=== PATIENT | female | born 1940 | race Caucasian/White ===

== ENCOUNTER 2020-10-26 10:45 | Inpatient (IN) ==
[2020-10-26 11:52] LABS: Red Blood Count 4.94 M/mcL (3.82-4.97)
[2020-10-26 11:54] LABS: Hemoglobin 16.2 g/dL (11.5-15.4); Mean Corpuscular HGB Conc 32.4 g/dL (31.6-35.5); Mean Corpuscular Hemoglobin 32.8 pg (28.0-33.3); Mean Corpuscular Volume 101.2 fL (83.0-100.0); Mean Platelet Volume 10.1 fL (9.4-12.4); Monocytes # 1.6 K/mcL (0.0-1.3); Platelet Count 135 K/mcL (140-400); Red Cell Distribution Width 15.8 % (11.5-14.5); White Blood Count 14.6 K/mcL (4.3-11.1)
[2020-10-26 11:58] LABS: VBG Ionized Calcium 1.06 mmol/L (1.15-1.35)
[2020-10-26 12:25] LABS: Troponin I 0.07 ng/mL (< 0.04)
[2020-10-26 12:30] LABS: Amorphous Sediment,Urine Few per hpf (None-Few); Bilirubin,Urine Negative (Negative); Blood,Urine Small (Negative); Clarity,Urine Turbid (Clear); Color,Urine Yellow (Yellow); Glucose,Urine (UA) Normal (Normal); Hyaline Casts,Urine Moderate per lpf (None Seen); Ketones,Urine Negative (Negative); Leukocyte Esterase,Urine Negative (Negative); Mucus,Urine Few per lpf (None-Few); Nitrite,Urine Negative (Negative); PH,Urine 5.5 pH Units (5.0-8.0); Protein,Urine 30 mg/dL (Neg-Trace); Specific Gravity,Urine 1.023 (1.010-1.025); Squamous Epithelial Cell,Urine Few per hpf (None-Few); WBC,Urine 0-3 per hpf (0-3)
[2020-10-26 12:49] LABS: Neutrophils # 10.5 K/mcL (1.6-8.9); Reactive Lymphocytes Present (Not Present)
[2020-10-26 12:50] LABS: Albumin 3.6 g/dL (3.5-5.7); Albumin/Globulin Ratio 1.1 (1.1-2.2); Anisocytosis 1+ (Not Present); Bilirubin,Total 1.7 mg/dL (0.3-1.0); Calcium 9.4 mg/dL (8.6-10.3); Globulin 3.3 g/dL (2.4-3.5); Magnesium 2.3 mg/dL (1.6-2.6); Phosphorous 3.9 mg/dL (2.7-4.5); Platelet Estimate Slight Decrease (Normal); Thyroid Stimulating Hormone 0.853 mcIU/mL (0.340-5.600); Total Protein 6.9 g/dL (6.4-8.9)
[2020-10-26] MEDS ORDERED: Naloxone 0.4 MG/ML INJ IVP PRN (13:49)
[2020-10-26] MEDS ORDERED: Perflutren Lipid Microsphere 1.3 ML in 0.9 % Sodium Chloride 8.7 ML IVP PRN (13:53)
[2020-10-26] MEDS ORDERED: Furosemide 20 MG/2 ML VIAL IVP ONE (13:59)
[2020-10-26] MEDS ORDERED: Calcium Gluconate 1gm/50mL 1 GM/50 ML BAG IVPB ONE (14:13)
[2020-10-26] MEDS: Acetaminophen 325 MG TABLET PO PRN (17:46)
[2020-10-26] MEDS: Piperacillin/Tazobactam 3.375 GM in 0.9 % Sodium Chloride Mini Bag 100 ML IVPB SCH (17:55)
[2020-10-26] MEDS: dexAMETHasone 4 MG TABLET PO SCH (20:24)
[2020-10-26] MEDS: Apixaban 5 MG TABLET PO SCH (20:24)
[2020-10-26] MEDS: Doxycycline 100 MG in 0.9 % Sodium Chloride Mini Bag 100 ML IVPB SCH (20:25)
[2020-10-26] MEDS ORDERED: Aspirin 325 MG TABLET PO ONE (23:00)
[2020-10-27] MEDS ORDERED: Doxycycline 100 MG VIAL ONE (05:18)
[2020-10-27] MEDS: Doxycycline 100 MG in 0.9 % Sodium Chloride Mini Bag 100 ML IVPB SCH ×2 (05:47→16:48)
[2020-10-27] MEDS: Acetaminophen 325 MG TABLET PO PRN ×2 (05:50→22:32)
[2020-10-27 07:36] LABS: Basophils % 0.1 %; Eosinophils % 0.1 %; Hematocrit 36.3 % (35.3-44.9); Immature Granulocytes % 12.9 % (0-4); Lymphocytes # 1.1 K/mcL (0.6-4.6); Lymphocytes % 7.9 %; Mean Corpuscular HGB Conc 32.5 g/dL (31.6-35.5); Mean Corpuscular Hemoglobin 33.4 pg (28.0-33.3); Mean Corpuscular Volume 102.8 fL (83.0-100.0); Mean Platelet Volume 10.7 fL (9.4-12.4); Monocytes # 1.4 K/mcL (0.0-1.3); Monocytes % 10.2 %; Neutrophils # 9.4 K/mcL (1.6-8.9); Nucleated Red Blood Cells 0.2 /100 WBC (0); Platelet Count 118 K/mcL (140-400); Red Blood Count 3.53 M/mcL (3.82-4.97); Red Cell Distribution Width 16.1 % (11.5-14.5); Segmented Neutrophils % 68.8 %; White Blood Count 13.6 K/mcL (4.3-11.1)
[2020-10-27 07:42] LABS: Hemoglobin 11.8 g/dL (11.5-15.4)
[2020-10-27 07:51] LABS: Calcium 8.4 mg/dL (8.6-10.3); Magnesium 2.1 mg/dL (1.6-2.6); Phosphorous 5.2 mg/dL (2.7-4.5); Potassium 3.6 mEq/L (3.5-5.1)
[2020-10-27 08:13] LABS: Platelet Estimate Normal (Normal)
[2020-10-27] MEDS: Apixaban 5 MG TABLET PO SCH ×2 (08:38→22:35)
[2020-10-27] MEDS: Piperacillin/Tazobactam 3.375 GM in 0.9 % Sodium Chloride Mini Bag 100 ML IVPB SCH ×3 (08:38→16:47)
[2020-10-27] MEDS: Famotidine 20 MG TABLET PO SCH (08:38)
[2020-10-27] MEDS: dexAMETHasone 4 MG TABLET PO SCH ×2 (08:38→22:34)
[2020-10-27] MEDS: Aspirin 81 MG TAB.CHEW PO SCH (08:46)
[2020-10-27] MEDS: Furosemide 20 MG/2 ML VIAL IVP SCH ×2 (15:00→16:46)
[2020-10-27 20:34] LABS: Adenovirus Not Detected (Not Detect); Bordetella Pertussis Not Detected (Not Detect); Chlamydophila pneumoniae Not Detected (Not Detect); Coronavirus 229E Not Detected (Not Detect); Coronavirus HKU1 Not Detected (Not Detect); Coronavirus NL63 Not Detected (Not Detect); Coronavirus OC43 Not Detected (Not Detect); Human Metapneumovirus Not Detected (Not Detect); Human Rhinovirus/Enterovirus Not Detected (Not Detect); Influenza A Subtype 2009 H1 Not Detected (Not Detect); Influenza B Not Detected (Not Detect); Mycoplasma pneumoniae Not Detected (Not Detect); Parainfluenza Virus 1 Not Detected (Not Detect); Parainfluenza Virus 2 Not Detected (Not Detect); Parainfluenza Virus 3 Not Detected (Not Detect); Parainfluenza Virus 4 Not Detected (Not Detect); Respiratory Syncytial Virus Not Detected (Not Detect)
[2020-10-27] MEDS: Ondansetron 4 MG/2 ML VIAL IVP PRN (22:44)
[2020-10-28] MEDS: Piperacillin/Tazobactam 3.375 GM in 0.9 % Sodium Chloride Mini Bag 100 ML IVPB SCH ×4 (02:04→23:40)
[2020-10-28] MEDS: Furosemide 20 MG/2 ML VIAL IVP SCH (02:07)
[2020-10-28 02:40] LABS: Mean Corpuscular HGB Conc 32.6 g/dL (31.6-35.5); Mean Corpuscular Hemoglobin 32.7 pg (28.0-33.3); Mean Corpuscular Volume 100.3 fL (83.0-100.0); Mean Platelet Volume 10.6 fL (9.4-12.4); Nucleated Red Blood Cells 0.3 /100 WBC (0); Platelet Count 127 K/mcL (140-400); Red Blood Count 3.09 M/mcL (3.82-4.97); Red Cell Distribution Width 15.5 % (11.5-14.5); White Blood Count 13.4 K/mcL (4.3-11.1)
[2020-10-28 02:41] LABS: Calcium 8.2 mg/dL (8.6-10.3); Magnesium 2.1 mg/dL (1.6-2.6); Phosphorous 3.5 mg/dL (2.7-4.5); Potassium 3.5 mEq/L (3.5-5.1)
[2020-10-28 02:44] LABS: Chol/HDL Ratio 4.9 (0-4.9)
[2020-10-28 02:47] LABS: Hemoglobin 10.1 g/dL (11.5-15.4)
[2020-10-28 03:18] LABS: Estimated Average Glucose 157 mg/dl; Hemoglobin A1C 7.1 %
[2020-10-28 03:54] LABS: Lymphocytes # 1.1 K/mcL (0.6-4.6); Monocytes # 0.5 K/mcL (0.0-1.3); Neutrophils # 11.5 K/mcL (1.6-8.9); Platelet Estimate Normal (Normal)
[2020-10-28] MEDS: Doxycycline 100 MG in 0.9 % Sodium Chloride Mini Bag 100 ML IVPB SCH ×2 (05:17→19:58)
[2020-10-28] MEDS: Apixaban 5 MG TABLET PO SCH ×2 (08:28→20:11)
[2020-10-28] MEDS: Famotidine 20 MG TABLET PO SCH (08:32)
[2020-10-28] MEDS: dexAMETHasone 4 MG TABLET PO SCH ×2 (08:34→20:11)
[2020-10-28] MEDS: Aspirin 81 MG TAB.CHEW PO SCH (08:37)
[2020-10-28] MEDS ORDERED: D5% in Water 1,000 ML IVC PRN (11:18)
[2020-10-28] MEDS ORDERED: Dextrose Gel 15 GM/37.5 ML TUBE PO PRN ×2 (11:18)
[2020-10-28] MEDS ORDERED: *HR* Dextrose 50 % in Water (Vial) 50 ML VIAL IVP PRN (11:18)
[2020-10-28] MEDS: Insulin LISPRO 300 UNITS/3 ML VIAL SUBQ SCH ×3 (12:40→20:37)
[2020-10-28] MEDS: Furosemide 40 MG TABLET PO SCH (12:41)
[2020-10-29 02:58] LABS: Hematocrit 30.2 % (35.3-44.9); Hemoglobin 9.8 g/dL (11.5-15.4); Mean Corpuscular HGB Conc 32.5 g/dL (31.6-35.5); Mean Corpuscular Hemoglobin 33.3 pg (28.0-33.3); Mean Corpuscular Volume 102.7 fL (83.0-100.0); Mean Platelet Volume 10.5 fL (9.4-12.4); Nucleated Red Blood Cells 0.5 /100 WBC (0); Platelet Count 123 K/mcL (140-400); Red Blood Count 2.94 M/mcL (3.82-4.97); Red Cell Distribution Width 15.3 % (11.5-14.5); White Blood Count 12.8 K/mcL (4.3-11.1)
[2020-10-29 03:17] LABS: BUN/Creatinine Ratio 43 (6-26); Blood Urea Nitrogen 40 mg/dL (8-23); Calcium 8.7 mg/dL (8.6-10.3); Carbon Dioxide 29 mEq/L (23-29); Chloride 105 mEq/L (98-107); Glucose 170 mg/dL (70-105); Osmolality,Calculated 308 (280-300); Potassium 3.8 mEq/L (3.5-5.1); Sodium 142 mEq/L (136-145); eGFR For African Americans > 60 (> 60); eGFR For Non-African Americans 59 (> 60)
[2020-10-29 03:52] LABS: Neutrophils # 9.7 K/mcL (1.6-8.9); Platelet Estimate Normal (Normal)
[2020-10-29] MEDS: Doxycycline 100 MG in 0.9 % Sodium Chloride Mini Bag 100 ML IVPB SCH ×2 (05:15→16:59)
[2020-10-29] MEDS: Insulin LISPRO 300 UNITS/3 ML VIAL SUBQ SCH ×4 (07:48→21:10)
[2020-10-29] MEDS: Famotidine 20 MG TABLET PO SCH (10:12)
[2020-10-29] MEDS: dexAMETHasone 4 MG TABLET PO SCH ×2 (10:12→21:11)
[2020-10-29] MEDS: Aspirin 81 MG TAB.CHEW PO SCH (10:12)
[2020-10-29] MEDS: Apixaban 5 MG TABLET PO SCH ×2 (10:12→21:11)
[2020-10-29] MEDS: Furosemide 40 MG TABLET PO SCH (10:12)
[2020-10-29] MEDS: Piperacillin/Tazobactam 3.375 GM in 0.9 % Sodium Chloride Mini Bag 100 ML IVPB SCH ×2 (13:12→17:07)
[2020-10-30] MEDS: Piperacillin/Tazobactam 3.375 GM in 0.9 % Sodium Chloride Mini Bag 100 ML IVPB SCH ×4 (00:43→23:44)
[2020-10-30] MEDS: Acetaminophen 325 MG TABLET PO PRN ×2 (03:57→20:32)
[2020-10-30] MEDS: Doxycycline 100 MG in 0.9 % Sodium Chloride Mini Bag 100 ML IVPB SCH ×2 (05:50→18:44)
[2020-10-30 06:42] LABS: Hematocrit 31.2 % (35.3-44.9); Hemoglobin 9.8 g/dL (11.5-15.4); Mean Corpuscular HGB Conc 31.4 g/dL (31.6-35.5); Mean Corpuscular Hemoglobin 32.8 pg (28.0-33.3); Mean Corpuscular Volume 104.3 fL (83.0-100.0); Mean Platelet Volume 10.8 fL (9.4-12.4); Nucleated Red Blood Cells 0.6 /100 WBC (0); Platelet Count 107 K/mcL (140-400); Red Blood Count 2.99 M/mcL (3.82-4.97); Red Cell Distribution Width 15.4 % (11.5-14.5)
[2020-10-30 07:18] LABS: Lymphocytes # 2.2 K/mcL (0.6-4.6); Monocytes # 0.2 K/mcL (0.0-1.3); Neutrophils # 7.4 K/mcL (1.6-8.9); Platelet Estimate Slight Decrease (Normal)
[2020-10-30 07:59] LABS: BUN/Creatinine Ratio 54 (6-26); Blood Urea Nitrogen 42 mg/dL (8-23); Calcium 8.6 mg/dL (8.6-10.3); Carbon Dioxide 27 mEq/L (23-29); Chloride 105 mEq/L (98-107); Glucose 118 mg/dL (70-105); Osmolality,Calculated 300 (280-300); Potassium 4.7 mEq/L (3.5-5.1); Sodium 139 mEq/L (136-145); eGFR For African Americans > 60 (> 60); eGFR For Non-African Americans > 60 (> 60)
[2020-10-30] MEDS: Insulin LISPRO 300 UNITS/3 ML VIAL SUBQ SCH ×4 (08:03→20:25)
[2020-10-30] MEDS: Famotidine 20 MG TABLET PO SCH (09:22)
[2020-10-30] MEDS: dexAMETHasone 4 MG TABLET PO SCH ×2 (09:22→20:31)
[2020-10-30] MEDS: Furosemide 40 MG TABLET PO SCH (09:22)
[2020-10-30] MEDS: Aspirin 81 MG TAB.CHEW PO SCH (09:22)
[2020-10-30] MEDS: Apixaban 5 MG TABLET PO SCH ×2 (09:23→20:31)
[2020-10-30 10:56] LABS: % Iron Saturation 58 % (15-50); Iron 136 mcg/dL (50-170); Transferrin 167 mg/dL (203-362)
[2020-10-30 11:04] LABS: Folate 11.2 ng/mL (3.0-16.0)
[2020-10-30] MEDS ORDERED: Cyanocobalamin (B-12) 1,000 MCG/ML VIAL SQ ONE (12:02)
[2020-10-31] MEDS: Doxycycline 100 MG in 0.9 % Sodium Chloride Mini Bag 100 ML IVPB SCH ×2 (05:49→18:27)
[2020-10-31] MEDS: Acetaminophen 325 MG TABLET PO PRN ×2 (05:56→21:11)
[2020-10-31] MEDS: Ondansetron 4 MG/2 ML VIAL IVP PRN (05:56)
[2020-10-31] MEDS: diazePAM 2 MG TABLET PO PRN ×2 (05:56→21:11)
[2020-10-31 06:39] LABS: Hematocrit 33.3 % (35.3-44.9); Hemoglobin 10.5 g/dL (11.5-15.4); Mean Corpuscular HGB Conc 31.5 g/dL (31.6-35.5); Mean Corpuscular Hemoglobin 32.4 pg (28.0-33.3); Mean Corpuscular Volume 102.8 fL (83.0-100.0); Mean Platelet Volume 10.2 fL (9.4-12.4); Nucleated Red Blood Cells 0.7 /100 WBC (0); Platelet Count 125 K/mcL (140-400); Red Blood Count 3.24 M/mcL (3.82-4.97); Red Cell Distribution Width 15.1 % (11.5-14.5); White Blood Count 11.3 K/mcL (4.3-11.1)
[2020-10-31 07:28] LABS: Lymphocytes # 1.4 K/mcL (0.6-4.6); Monocytes # 0.2 K/mcL (0.0-1.3); Neutrophils # 8.8 K/mcL (1.6-8.9); Platelet Estimate Slight Decrease (Normal); Reactive Lymphocytes Present (Not Present)
[2020-10-31] MEDS: Insulin LISPRO 300 UNITS/3 ML VIAL SUBQ SCH ×4 (07:30→21:13)
[2020-10-31] MEDS: Aspirin 81 MG TAB.CHEW PO SCH (10:17)
[2020-10-31] MEDS: Piperacillin/Tazobactam 3.375 GM in 0.9 % Sodium Chloride Mini Bag 100 ML IVPB SCH ×3 (10:18→23:47)
[2020-10-31] MEDS: Apixaban 5 MG TABLET PO SCH (10:18)
[2020-10-31] MEDS: Famotidine 20 MG TABLET PO SCH (10:18)
[2020-10-31] MEDS: Furosemide 40 MG TABLET PO SCH (10:18)
[2020-10-31] MEDS: dexAMETHasone 4 MG TABLET PO SCH ×2 (10:18→21:11)
[2020-10-31 18:06] LABS: Immature Reticulocyte % 28.7 % (11.0-38.0); Retculocyte # 0.1 M/mcL (0.05-0.10); Reticulocyte % 2.7 % (1.6-2.8)
[2020-11-01 05:28] LABS: Hemoglobin 11.6 g/dL (11.5-15.4); Mean Corpuscular HGB Conc 31.4 g/dL (31.6-35.5); Mean Corpuscular Hemoglobin 32.9 pg (28.0-33.3); Mean Corpuscular Volume 104.8 fL (83.0-100.0); Mean Platelet Volume 10.3 fL (9.4-12.4); Monocytes # 1.9 K/mcL (0.0-1.3); Nucleated Red Blood Cells 0.8 /100 WBC (0); Platelet Count 126 K/mcL (140-400); Red Blood Count 3.53 M/mcL (3.82-4.97); Red Cell Distribution Width 15.6 % (11.5-14.5)
[2020-11-01 05:52] LABS: Lymphocytes # 1.3 K/mcL (0.6-4.6); Neutrophils # 11.8 K/mcL (1.6-8.9); Platelet Estimate Normal (Normal); Reactive Lymphocytes Present (Not Present)
[2020-11-01] MEDS: Doxycycline 100 MG in 0.9 % Sodium Chloride Mini Bag 100 ML IVPB SCH ×2 (06:13→18:21)
[2020-11-01] MEDS: Insulin LISPRO 300 UNITS/3 ML VIAL SUBQ SCH ×4 (08:16→21:44)
[2020-11-01] MEDS: Furosemide 40 MG TABLET PO SCH (08:41)
[2020-11-01] MEDS: dexAMETHasone 4 MG TABLET PO SCH ×2 (08:41→21:48)
[2020-11-01] MEDS: Piperacillin/Tazobactam 3.375 GM in 0.9 % Sodium Chloride Mini Bag 100 ML IVPB SCH ×2 (08:41→17:01)
[2020-11-01] MEDS: Aspirin 81 MG TAB.CHEW PO SCH (08:41)
[2020-11-01] MEDS: Famotidine 20 MG TABLET PO SCH (08:41)
[2020-11-01] MEDS: Cyanocobalamin (B-12) 1,000 MCG TABLET PO SCH (08:42)
[2020-11-01 10:45] LABS: Bilirubin,Urine Negative (Negative); Blood,Urine Large (Negative); Clarity,Urine Turbid (Clear); Color,Urine Brown (Yellow); Glucose,Urine (UA) Normal (Normal); Ketones,Urine Negative (Negative); Leukocyte Esterase,Urine Negative (Negative); Nitrite,Urine Negative (Negative); Protein,Urine 70 mg/dL (Neg-Trace); Specific Gravity,Urine 1.023 (1.010-1.025); Urobilinogen,Urine Normal (Normal)
[2020-11-01 10:48] LABS: Amorphous Sediment,Urine Present per hpf (None-Few); Bacteria,Urine Present per hpf (None-Few); RBC,Urine Present per hpf (0-3); WBC,Urine Present per hpf (0-3)
[2020-11-01 10:49] LABS: Calcium Oxalate Crystals,Urine Present
[2020-11-01] MEDS ORDERED: *HR* EPINEPHrine 1 MG/10 ML SYRINGE INTRATRACH PRN (12:33)
[2020-11-01] MEDS ORDERED: Pantoprazole 40 MG VIAL IVP ONE (13:18)
[2020-11-01] MEDS: Pantoprazole 40 MG in 0.9 % Sodium Chloride Mini Bag 100 ML IVC SCH ×2 (13:46→18:22)
[2020-11-01] MEDS ORDERED: Lidocaine -MPF 2% 5 ML VIAL SQ ONE (14:33)
[2020-11-01] MEDS ORDERED: *HR* Propofol 500 MG/50 ML BOTTLE IVP ONE (14:33)
[2020-11-01] MEDS: Sucralfate 1 GM TABLET PO SCH (21:48)
[2020-11-02] MEDS: Pantoprazole 40 MG in 0.9 % Sodium Chloride Mini Bag 100 ML IVC SCH ×3 (02:06→12:19)
[2020-11-02 03:28] LABS: Hematocrit 32.7 % (35.3-44.9); Hemoglobin 10.4 g/dL (11.5-15.4); Mean Corpuscular HGB Conc 31.8 g/dL (31.6-35.5); Mean Corpuscular Hemoglobin 32.1 pg (28.0-33.3); Mean Corpuscular Volume 100.9 fL (83.0-100.0); Mean Platelet Volume 10.3 fL (9.4-12.4); Nucleated Red Blood Cells 0.6 /100 WBC (0); Platelet Count 138 K/mcL (140-400); Red Blood Count 3.24 M/mcL (3.82-4.97); Red Cell Distribution Width 15.8 % (11.5-14.5); White Blood Count 14.9 K/mcL (4.3-11.1)
[2020-11-02 03:48] LABS: Lymphocytes # 2.7 K/mcL (0.6-4.6); Monocytes # 1.2 K/mcL (0.0-1.3); Neutrophils # 10.1 K/mcL (1.6-8.9); Platelet Estimate Slight Decrease (Normal)
[2020-11-02 03:49] LABS: Anisocytosis 1+ (Not Present); Toxic Granulation Present (Not Present)
[2020-11-02] MEDS: Insulin LISPRO 300 UNITS/3 ML VIAL SUBQ SCH ×4 (08:34→20:46)
[2020-11-02] MEDS: dexAMETHasone 4 MG TABLET PO SCH ×2 (08:46→20:53)
[2020-11-02] MEDS: Furosemide 40 MG TABLET PO SCH (08:46)
[2020-11-02] MEDS: Cyanocobalamin (B-12) 1,000 MCG TABLET PO SCH (08:46)
[2020-11-02] MEDS: Aspirin 81 MG TAB.CHEW PO SCH (08:46)
[2020-11-02] MEDS: Acetaminophen 325 MG TABLET PO PRN ×3 (09:01→20:53)
[2020-11-02] MEDS: diazePAM 2 MG TABLET PO PRN ×2 (09:01→20:53)
[2020-11-02] MEDS: Ondansetron 4 MG/2 ML VIAL IVP PRN (17:12)
[2020-11-02] MEDS: Sucralfate 1 GM TABLET PO SCH (20:53)
[2020-11-03 07:30] VITALS: BP 143/77
[2020-11-03] MEDS: Insulin LISPRO 300 UNITS/3 ML VIAL SUBQ SCH (07:37)
[2020-11-03] MEDS: diazePAM 2 MG TABLET PO PRN (08:59)
[2020-11-03] MEDS: Acetaminophen 325 MG TABLET PO PRN (08:59)
[2020-11-03] MEDS: Aspirin 81 MG TAB.CHEW PO SCH (08:59)
[2020-11-03] MEDS: Cyanocobalamin (B-12) 1,000 MCG TABLET PO SCH (08:59)
[2020-11-03] MEDS: Furosemide 40 MG TABLET PO SCH (08:59)
[2020-11-03] MEDS: dexAMETHasone 4 MG TABLET PO SCH (08:59)
[2020-11-08 01:08] LABS: BCR-ABL1 Specimen Source NOT SPECIFIED
== END 2020-11-03 12:15 ==
LOC: EMEROOARM 10:45 → 3BNU 10:45 → SUATTDRO 14:23 → 3BNU 15:47 → SUATTDRO 10-27 15:00
PROVIDERS: ADMIT Internal Medicine; ATTEND Internal Medicine